=== PATIENT | female | born 1960 | race Caucasian/White ===

== ENCOUNTER 2020-01-25 13:23 | Emergency (ER) | payer MEDICARE, OTHER ==
[2020-01-25 14:04] VITALS: RESP 18
--- NOTE | 2020-01-25 14:42 | ED ---
Female Urogenital HPI - General Chief complaint: Urogenital Stated complaint: Urinating Blood Time Seen by Provider: 01/25/20 14:20 Source: patient Mode of arrival: ambulatory Limitations: no limitations - History of Present Illness Initial comments: Patient is a 60-year-old female presenting to the emergency Department with complaints of hematuria 2 days. Patient states 2 days ago she noticed a small amount of blood in her urine and was also having some mild bilateral lower back pain. Patient states the next day she drank a lot of water and she seemed to feel better, she did not have any more blood in her urine and her back was feeling better. Patient states she woke up this morning and did notice her back pain was back on both sides as well as more blood in her urine. She states she is having urgency and frequency. She denies a history of kidney stones. She takes a full strength aspirin daily, no other blood thinners. She denies fever, chills, nausea, vomiting, abdominal pain. She states she has had UTIs in the past. She has no further complaints at this time. Upon arrival to the ER her vitals are stable. - Related Data Previous Rx's Medication Instructions Recorded Cephalexin [Keflex] 500 mg PO BID 10 Days #20 cap 01/25/20 Fluconazole [Diflucan] 150 mg PO ONCE #1 tab 01/25/20 Allergies Allergy/AdvReac Type Severity Reaction Status Date / Time codeine Allergy Unknown Verified 01/25/20 14:04 Review of Systems ROS Statement: Those systems with pertinent positive or pertinent negative responses have been documented in the HPI. ROS Other: All systems not noted in ROS Statement are negative. Past Medical History Past Medical History: Diabetes Mellitus, Fibromyalgia, Hypertension, Thyroid Disorder Additional Past Medical History / Comment(s): back pain History of Any Multi-Drug Resistant Organisms: None Reported Past Surgical History: Back Surgery, Hysterectomy Additional Past Surgical History / Comment(s): neck surgery Past Psychological History: Anxiety, Depression Smoking Status: Former smoker Past Alcohol Use History: None Reported Past Drug Use History: None Reported General Exam - General Exam Comments Initial Comments: GENERAL: Patient is well-developed and well-nourished. Patient is nontoxic and in no acute distress. HEAD: Atraumatic, normocephalic. EYES: Pupils equal round and reactive to light, extraocular movements intact, sclera anicteric, conjunctiva are normal. Eyelids were unremarkable. ENT: TMs normal, nares patent, oropharynx clear without exudates. Moist mucous membranes. NECK: Normal range of motion, supple without lymphadenopathy or JVD. LUNGS: Unlabored respirations. Breath sounds clear to auscultation bilaterally and equal. No wheezes rales or rhonchi. HEART: Regular rate and rhythm without murmurs, rubs or gallops. ABDOMEN: Soft, nontender, normoactive bowel sounds. No guarding, no rebound. No masses appreciated. : Deferred MUSCULOSKELETAL: Normal extremities with adequate strength and normal range of motion, no pitting or edema. No clubbing or cyanosis. NEUROLOGICAL: Patient is alert and oriented x 3. Motor and sensory are also intact. Cranial nerves II through XII grossly intact. Symmetrical smile. Normal speech, normal gait. PSYCH: Normal mood, normal affect. SKIN: Warm, Dry, normal turgor, no rashes or lesions noted. Limitations: no limitations Course Vital Signs 01/25/20 01/25/20 14:00 15:11 Temperature 98.3 F 97.7 F Pulse Rate 96 88 Respiratory 18 18 Rate Blood Pressure 140/94 128/74 O2 Sat by Pulse 96 96 Oximetry Medical Decision Making - Medical Decision Making Patient is a 60-year-old female here for hematuria, bilateral lower back pain 2 days. Her vitals are stable, no fevers, no vomiting or abdominal pain. Urine shows a moderate amount of blood, high amount of WBCs, bacteria. Urine culture is pending. I discussed with patient that her symptoms are most likely related to a UTI, pyelonephritis is on the differential as well secondary to her back pain. I will start patient on Keflex. She will follow up with her PCP. She is stable for discharge. Return parameters were discussed with the patient she verbalized understanding. Case discussed with Dr. Horton. - Lab Data Lab Results 01/25/20 Range/Units 14:32 Urine Color Light Yellow Urine Appearance Clear (Clear) Urine pH 5.5 (5.0-8.0) Ur Specific [place] 1.009 (1.001-1.035) Urine Protein Negative (Negative) Urine Glucose (UA) Negative (Negative) Urine Ketones Negative (Negative) Urine Blood Moderate H (Negative) Urine Nitrite Negative (Negative) Urine Bilirubin Negative (Negative) Urine Urobilinogen <2.0 (<2.0) mg/dL Ur Leukocyte Esterase Large H (Negative) Urine RBC 60 H (0-5) /hpf Urine WBC 47 H (0-5) /hpf Ur Squamous Epith Cells 4 (0-4) /hpf Urine Bacteria Rare H (None) /hpf Hyaline Casts 12 H (0-2) /lpf Urine Mucus Rare H (None) /hpf Disposition Clinical Impression: Urinary tract infection Disposition: HOME SELF-CARE Condition: Stable Instructions (If sedation given, give patient instructions): Urinary Tract Infection in Women (ED) Additional Instructions: Please return to the Emergency Department if symptoms worsen or any other concerns. Take antibiotics as prescribed. Follow-up with PCP. Continue to increase water intake. Prescriptions: Fluconazole [Diflucan] 150 mg PO ONCE #1 tab Cephalexin [Keflex] 500 mg PO BID 10 Days #20 cap Is patient prescribed a controlled substance at d/c from ED?: No Referrals: Nonstaff,Physician [Primary Care Provider] - 1-2 days
[2020-01-25 14:50] LABS: Appearance,Urine Clear (Clear); Bacteria,Urine Rare /hpf; Bilirubin,Urine Negative (Negative); Blood,Urine Moderate (Negative); Color,Urine Light Yellow; Glucose,Urine (UA) Negative (Negative); Hyaline Casts,Urine 12 /lpf (0-2); Ketones,Urine Negative (Negative); Leukocyte Esterase,Urine Large (Negative); Mucus,Urine Rare /hpf; Nitrite,Urine Negative (Negative); PH, Urine 5.5 (5.0-8.0); Protein,Urine Negative (Negative); RBC,Urine 60 /hpf (0-5); Specific Gravity,Urine 1.009 (1.001-1.035); Squamous Epithelial Cell,Urine 4 /hpf (0-4); Urobilinogen,Urine <2.0 mg/dL (<2.0); WBC,Urine 47 /hpf (0-5)
[2020-01-25 15:11] VITALS: BP 128/74; PULSE 88; TEMP 97.7
== END 2020-01-25 15:34 | disposition home or self-care (01) ==
LOC: EC 13:23
DX: N39.0 Urinary tract infection, site not specified (principal); Z88.5 Allergy status to narcotic agent; Z98.890 Other specified postprocedural states; Z87.891 Personal history of nicotine dependence; Z87.440 Personal history of urinary (tract) infections
CPT/HCPCS: 81001; 87086; 99283

== ENCOUNTER 2020-11-13 19:24 | Emergency (ER) | payer MEDICARE ==
[2020-11-13 19:31] VITALS: TEMP 97.5
[2020-11-13] MEDS ORDERED: HYDROmorphone 1 MG/ML 1 ML SYRINGE IM STA (19:42)
[2020-11-13] MEDS ORDERED: DIPH,PERTUS(ACELL)TETVAC-LF 0.5 ML VIAL IM ONE (19:44)
[2020-11-13] MEDS ORDERED: BACITRACIN OINT 1 EACH PACKET TOPICAL ONE (19:44)
[2020-11-13] MEDS ORDERED: LIDOCAINE/EPINEPHR/TETRACAINE 5 ML BOTTLE TOPICAL ONE (19:44)
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
--- NOTE | 2020-11-13 21:16 | XR ---
EXAMINATION TYPE: XR forearm LT DATE OF EXAM: 11/13/2020 COMPARISON: NONE HISTORY: Pain. Fall. TECHNIQUE: 2 views FINDINGS: Radius and ulna appear intact. I see no fracture nor dislocation. Joint spaces are normal. IMPRESSION: Negative left forearm exam.
[2020-11-13 21:40] VITALS: BP 121/85; PULSE 91; RESP 18
--- NOTE | 2020-11-13 21:44 | XR ---
EXAMINATION TYPE: XR shoulder complete LT DATE OF EXAM: 11/13/2020 COMPARISON: NONE HISTORY: Shoulder pain TECHNIQUE: 3 views FINDINGS: I see no fracture nor dislocation. Joint spaces are normal. There is mild spurring at the A C joint. There are no pathologic calcifications. IMPRESSION: Negative left shoulder exam. No fracture.
--- NOTE | 2020-11-13 21:46 | XR ---
EXAMINATION TYPE: XR lumbosacral spine min 4V DATE OF EXAM: 11/13/2020 COMPARISON: NONE HISTORY: Pain TECHNIQUE: 5 views FINDINGS: Lumbar vertebra have normal alignment. There is rods and screws fusing posteriorly lumbar s pine from L4 to S1. There is vacuum disc at L5-S1. There is mild anterior subluxation of L5 in relati on S1. There is multilevel lumbar disc space narrowing. There is no compression fracture. Abdominal a debbie is atheromatous. Sacroiliac joints are intact. There is laminectomy defect in the lumbar spine a t L4 and L5. IMPRESSION: Previous surgery. No acute bony abnormality. Spondylotic changes.
== END 2020-11-13 22:21 | disposition home or self-care (01) ==
LOC: EC 19:24
DX: S16.1XXA Strain of muscle, fascia and tendon at neck level, initial encounter (principal); S46.912A Strain of unspecified muscle, fascia and tendon at shoulder and upper arm level, left arm, initial encounter; S50.812A Abrasion of left forearm, initial encounter; M54.5 Low back pain; E11.9 Type 2 diabetes mellitus without complications; I10 Essential (primary) hypertension; M79.7 Fibromyalgia; F32.9 Major depressive disorder, single episode, unspecified; F41.9 Anxiety disorder, unspecified; Z23 Encounter for immunization; Z79.1 Long term (current) use of non-steroidal anti-inflammatories (NSAID); Z79.82 Long term (current) use of aspirin; Z79.84 Long term (current) use of oral hypoglycemic drugs; Z79.890 Hormone replacement therapy; Z79.899 Other long term (current) drug therapy; Z87.891 Personal history of nicotine dependence; Z98.1 Arthrodesis status; V28.4XXA Motorcycle driver injured in noncollision transport accident in traffic accident, initial encounter; Y92.410 Unspecified street and highway as the place of occurrence of the external cause; Y93.55 Activity, bike riding
CPT/HCPCS: 72110; 73030; 73090; 72125; 70450; 90715; 96372; 90471; 99284; J1170

== ENCOUNTER → 2020-12-09 | Outpatient (CLI) | payer MEDICARE ==
--- NOTE | 2020-12-09 11:31 | US ---
EXAMINATION TYPE: US carotid duplex BILAT DATE OF EXAM: 12/09/2020 COMPARISON: NONE CLINICAL HISTORY: Z86.73 hx of TIA,I10 PRIMARY HTN. EXAM MEASUREMENTS: RIGHT: Peak Systolic Velocity (PSV) cm/sec ----- Right CCA: 84.9 ----- Right ICA: 120.0 ----- Right ECA: 203.0 ICA/CCA ratio: 1.41 RIGHT: End Diastole cm/sec ----- Right CCA: 21.1 ----- Right ICA: 34.7 ----- Right ECA: 19.1 LEFT: Peak Systolic Velocity (PSV) cm/sec ----- Left CCA: 98.5 ----- Left ICA: 101.0 ----- Left ECA: 130.0 ICA/CCA ratio: 1.03 LEFT: End Diastole cm/sec ----- Left CCA: 31.3 ----- Left ICA: 36.7 ----- Left ECA: 22.4 VERTEBRALS (direction of flow): Right Vertebral: Antegrade Left Vertebral: Antegrade Rhythm: Normal No significant stenosis seen. Elevated right and left ECA velocities. IMPRESSION: No evidence for hemodynamically significant stenosis. NASCET criteria was used in interpretation of this exam? Criteria for Assigning % of Stenosis / Diameter reduction (Estimation based on the indirect measurements of the internal carotid artery velocities (ICA PSV). 1. Normal (no stenosis)=ICA PSV < 125 cm/s: ratio < 2.0: ICA EDV<40 cm/s. 2. Less than 50% stenosis=ICA PSV < 125 cm/s: ratio < 2.0: ICA EDV<40 cm/s. 3. 50 to 69% stenosis=ICA PSV of 125 to 230 cm/s: ration 2.0 ? 4.0: ICA EDV 40-100 cm/s. 4. Greater than 70% stenosis to near occlusion= ICA PSV > 230 cm/s: ratio > 4.0: ICA EDV > 100 cm/s. 5. Near occlusion= ICA PSV velocities may be low or undetectable: variable ratio and ICA EDV. 6. Total occlusion=unable to detect flow.
== END | disposition home or self-care (01) ==
LOC: RADUSWWP 10:56
PROVIDERS: ATTEND Family Medicine
DX: I10 Essential (primary) hypertension (principal); Z86.73 Personal history of transient ischemic attack (TIA), and cerebral infarction without residual deficits
CPT/HCPCS: 93880

== ENCOUNTER → 2021-03-06 | Outpatient (CLI) | payer MEDICARE ==
[2021-03-07 03:37] LABS: Magnesium 2.1 mg/dL (1.5-2.4); Phosphorus 3.8 mg/dL (2.4-5.1)
[2021-03-07 04:58] LABS: ALT 28 U/L (8-44); AST 32 U/L (13-35); African American GFR (CKD) 80.5 (60.0-200.0); Albumin 4.4 g/dL (3.8-4.9); Albumin/Globulin Ratio 1.69 (1.60-3.17); Alkaline Phosphatase 96 U/L (41-126); BUN/Creat Ratio 14.33 Ratio (12.00-20.00); Blood Urea Nitrogen 12.9 mg/dL (9.0-27.0); Calcium 9.7 mg/dL (8.7-10.3); Carbon Dioxide 18.8 mmol/L (21.6-31.8); Chloride 103 mmol/L (96-109); Globulin 2.6 g/dL (1.6-3.3); Glucose 85 mg/dL (70-110); Non-African American GFR(CKD) 69.5 (60.0-200.0); Potassium 4.9 mmol/L (3.5-5.5); Sodium 137 mmol/L (135-145); Total Bilirubin <0.20 mg/dL (0.30-1.20)
== END | disposition home or self-care (01) ==
LOC: LABWHC1 16:21
PROVIDERS: ATTEND Nurse Practitioner Family
DX: E11.9 Type 2 diabetes mellitus without complications (principal); E87.0 Hyperosmolality and hypernatremia
CPT/HCPCS: 36415; 80053; 83735; 84100

== ENCOUNTER 2022-04-24 12:08 | Day surgery (SDC) | payer MEDICARE ==
[~2022-04-24 12:08] MED LIST: LACTATED RINGERS 1,000 ML IV SCH; LIDOCAINE 1% (10MG/ML) FOR IV START INTRADERMA PRN
[2022-04-24 14:24] VITALS: TEMP 96.9
[2022-04-24 14:26] LABS: Glucose,Whole Blood 83 mg/dL (70-110)
[2022-04-24] MEDS ORDERED: ONDANSETRON 4 MG/2 ML VIAL IVP ONE (14:29)
[2022-04-24] MEDS ORDERED: LIDOCAINE 2% INJ 20 MG/ML (2 ML VIAL) ONE (14:46)
[2022-04-24] MEDS ORDERED: PROPOFOL 10 MG/ML 20 ML VIAL IV ONE (14:46)
--- NOTE | 2022-04-24 15:13 | P.PCN ---
Date of Procedure: 04/24/22 Procedure(s) Performed: BRIEF HISTORY: Patient is a 62-year-old pleasant white female scheduled for an elective colonoscopy as a part of evaluation of chronic diarrhea for the last several months duration. PROCEDURE PERFORMED: Colonoscopy with random biopsy. PREOPERATIVE DIAGNOSIS: Chronic Diarrhea. IV sedation per Anesthesia. PROCEDURE: After informed consent was obtained, the patient, was brought into the endoscopy unit. IV sedation was administered by Anesthesia under continuous monitoring. Digital rectal examination was normal. Initially the Olympus CF-160 flexible video colonoscope was then inserted in the rectum, gradually advanced into the cecum without any difficulty. Careful examination was performed as the scope was gradually being withdrawn. Ileocecal valve and the appendiceal orifice were visualized and appeared normal. Prep was excellent. Mucosa of the cecum, ascending colon, transverse colon, descending colon, sigmoid colon, and rectum appeared normal. Biopsies were done from ascending and descending colon to rule out microscopic/collagenous Retroflexion was performed in the rectum and no lesions were seen. The patient tolerated the procedure well. IMPRESSION: Normal-appearing colon from rectum to cecum with no evidence of colitis or colorectal neoplasia . RECOMMENDATIONS: Findings of this examination were discussed with the patient as well as a family. She was advised to follow with the biopsy results. Continue with Bentyl 10 mg 3 times daily and she will be seen in office in 3-4 weeks..
[2022-04-24 15:25] VITALS: BP 138/83; PULSE 78; RESP 14
== END 2022-04-24 15:52 | disposition home or self-care (01) ==
LOC: ORWHC2ENDO 12:08
PROVIDERS: ATTEND Internal Medicine Gastroenterology
DX: K52.9 Noninfective gastroenteritis and colitis, unspecified (principal); I10 Essential (primary) hypertension; E78.5 Hyperlipidemia, unspecified; E11.9 Type 2 diabetes mellitus without complications; E07.9 Disorder of thyroid, unspecified; K91.0 Vomiting following gastrointestinal surgery; M79.7 Fibromyalgia; Z79.890 Hormone replacement therapy; Z79.899 Other long term (current) drug therapy; Z79.84 Long term (current) use of oral hypoglycemic drugs
CPT/HCPCS: 88305; 45380; J2405; J2704; J2001

== ENCOUNTER 2023-01-29 13:41 | Emergency (ER) | payer MEDICARE ==
[2023-01-29 14:01] VITALS: RESP 16; TEMP 98.9
--- NOTE | 2023-01-29 14:24 | ED ---
Chest Pain HPI - General Chief Complaint: Chest Pain Stated Complaint: 3 bad ekg's Time Seen by Provider: 01/29/23 13:57 Source: patient, RN notes reviewed, old records reviewed Mode of arrival: ambulatory Limitations: no limitations - History of Present Illness Initial Comments: This is a 63-year-old female to the emergency department today. Patient p resents today for evaluation of abnormal outpatient EKGs, 3 abnormal EKGs per the patient. Patient presents with chest pain today. She has had chest pain for the last 6 months. Patient presents today for current chest pain shortness of breath especially with exertion with no prior evaluations. MD Complaint: chest pain -: month(s) Pain Location: substernal, left chest Pain Radiation: none Severity: moderate Severity scale (1-10): 4 Quality: tightness, aching, heaviness Consistency: constant Improves With: nothing Worsens With: exertion Anginal Symptoms: nausea, sense of impending doom Other Symptoms: palpitations Treatments Prior to Arrival: none - Related Data Home Medications Medication Instructions Recorded Confirmed ALPRAZolam [Xanax] 1 mg PO DAILY PRN 11/13/20 02/02/23 Ezetimibe [Zetia] 10 mg PO HS 11/13/20 02/02/23 Fetzima Er 120 mg PO DAILY 11/13/20 02/02/23 Levothyroxine Sodium [Synthroid] 75 mcg PO HS 11/13/20 02/02/23 Metoprolol Succinate (ER) [Toprol 100 mg PO DAILY 11/13/20 02/02/23 XL] Dicyclomine [Bentyl] 10 mg PO QID PRN 04/24/22 02/02/23 Cholestyramine (with Sugar) 4 gm PO DAILY PRN 01/29/23 02/02/23 [Questran Powder] Ibuprofen [Motrin] 800 mg PO Q8H 01/29/23 02/02/23 Spironolactone 25 mg PO DAILY 01/29/23 02/02/23 ALPRAZolam [Xanax] 2 mg PO HS 02/02/23 02/02/23 Acetaminophen [Acetaminophen 8 hr] 650 mg PO Q6HR PRN 02/02/23 02/02/23 Miconazole Nitrate [Miconazole 1 applic TOPICAL BID PRN 02/02/23 02/02/23 Nitrate 2%] Pantoprazole [Protonix] 40 mg PO DAILY 02/02/23 02/02/23 Pregabalin [Lyrica] 150 mg PO HS 02/02/23 02/02/23 Pregabalin [Lyrica] 300 mg PO DAILY 02/02/23 02/02/23 Previous Rx's Medication Instructions Recorded Aspirin 81 mg PO DAILY #30 tab 02/03/23 Losartan [Cozaar] 50 mg PO DAILY #30 tab 02/03/23 Nitroglycerin Sl Tabs [Nitrostat] 0.4 mg SUBLINGUAL Q5M PRN #30 tab 02/03/23 Ticagrelor [Brilinta] 90 mg PO BID #30 tab 02/03/23 Venlafaxine HCl [Effexor] 50 mg PO BID #30 tab 02/03/23 Allergies Allergy/AdvReac Type Severity Reaction Status Date / Time codeine Allergy Anaphylaxis Verified 02/02/23 19:04 /RASH/HIVES /Vomiting morphine Allergy Rash/Hives/ Verified 02/02/23 19:04 Vomiting [id number] Reductase AdvReac Swelling Verified 02/02/23 19:04 Inhibitor Review of Systems ROS Statement: Those systems with pertinent positive or pertinent negative responses have been documented in the HPI. ROS Other: All systems not noted in ROS Statement are negative. 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, broken jaw limited ability to open mouth, History of Any Multi-Drug Resistant Organisms: None Reported Past Surgical History: Back Surgery, Hysterectomy Additional Past Surgical History / Comment(s): neck surgery, cataracts 3 level fusion to lower back,cataracts removed, Past Anesthesia/Blood Transfusion Reactions: Postoperative Nausea & Vomiting (PONV) Past Psychological History: Anxiety, Depression Smoking Status: Former smoker General Exam Limitations: no limitations General appearance: alert, in no apparent distress, anxious Head exam: Present: atraumatic, normocephalic, normal inspection Eye exam: Present: normal appearance, PERRL, EOMI. Absent: scleral icterus, conjunctival injection, periorbital swelling ENT exam: Present: normal exam, mucous membranes moist Neck exam: Present: normal inspection. Absent: tenderness, meningismus, lymphadenopathy Respiratory exam: Present: normal lung sounds bilaterally. Absent: respiratory distress, wheezes, rales, rhonchi, stridor Cardiovascular Exam: Present: regular rate, normal rhythm, normal heart sounds. Absent: systolic murmur, diastolic murmur, rubs, gallop, clicks GI/Abdominal exam: Present: soft, normal bowel sounds. Absent: distended, tenderness, guarding, rebound, rigid Extremities exam: Present: normal inspection, full ROM, normal capillary refill. Absent: tenderness, pedal edema, joint swelling, calf tenderness Back exam: Present: normal inspection Neurological exam: Present: alert, oriented X3, CN II-XII intact Psychiatric exam: Present: normal affect, normal mood Skin exam: Present: warm, dry, intact, normal color. Absent: rash Course Vital Signs 01/29/23 01/29/23 13:51 17:39 Temperature 98.9 F Pulse Rate 88 80 Respiratory 16 16 Rate Blood Pressure 155/84 153/90 O2 Sat by Pulse 97 95 Oximetry - Reevaluation(s) Reevaluation #1: 02/04/23 13:53 Medical record is reviewed Reevaluation #2: 02/04/23 13:53 Patient symptoms are unchanged Reevaluation #3: 02/04/23 13:53 Informed results and questions answered Reevaluation #4: 01/29/23 15:31 Was pt. sent in by a medical professional or institution (, PA, MATE CHIEF, urgent care, hospital, or usp...) When possible be specific @ -no Did you speak to anyone other than the patient for history (EMS, parent, family, police, friend...)? What history was obtained from this source @ -no Did you review nursing and triage notes (agree or disagree)? Why? @ -agree Are old charts reviewed (outside hosp., previous admission, EMS record, old EKG, old radiological studies, urgent care reports/EKG's, usp records)? Report findings @ -yes Differential Diagnosis (chest pain, altered mental status, abdominal pain women, abdominal pain men, vaginal bleeding, weakness, fever, dyspnea, syncope, headache, dizziness, GI bleed, back pain, seizure, CVA, palpatations, mental health, musculoskeletal)? @ -prior EKG interpreted by me (3pts min.). @ -yes X-rays interpreted by me (1pt min.). @ -yes CT interpreted by me (1pt min.). @ -no U/S interpreted by me (1pt. min.). @ -no What testing was considered but not performed or refused? (CT, X-rays, U/S, labs)? Why? @ -none What meds were considered but not given or refused? Why? @ -none Did you discuss the management of the patient with other professionals (professionals i.e. , PA, MATE CHIEF, lab, RT, psych nurse, social services analyst, pocketbook maker, teacher, patrol officer, caser in)? Give summary @ -no Was smoking cessation discussed for >3mins.? @ -no Was critical care preformed (if so, how long)? @ -no Were there social determinants of health that impacted care today? How? (Homelessness, low income, unemployed, alcoholism, drug addiction, transportation, low edu. Level, literacy, decrease access to med. care, group home, rehab)? @ -none Was there de-escalation of care discussed even if they declined (Discuss DNR or withdrawal of care, Hospice)? DNR status @ -no What co-morbidities impacted this encounter? (DM, HTN, Smoking, COPD, CAD, Cancer, CVA, ARF, Chemo, Hep., AIDS, mental health diagnosis, sleep apnea, morbid obesity)? @ -none Was patient admitted / discharged? Hospital course, mention meds given and route, prescriptions, significant lab abnormalities, going to OR and other pertinent info. @ - 63 female to the emergency department for abnormal outpatient EKGs, patient is normal troponin here in the ER EKG here in the areas of abnormalities and patient can be discharged home Discharge Undiagnosed new problem with uncertain prognosis? @ -no Drug Therapy requiring intensive monitoring for toxicity (Heparin, Nitro, Insulin, Cardizem)? @ -no Were any procedures done? @ -no Diagnosis/symptom? @ -Chest pain Acute, or Chronic, or Acute on Chronic? @ -Acute Uncomplicated (without systemic symptoms) or Complicated (systemic symptoms)? @ -Complicated Side effects of treatment? @ -no Exacerbation, Progression, or Severe Exacerbation? @ -exacerbation Poses a threat to life or bodily function? How? (Chest pain, USA, MD, pneumonia, PE, COPD, DKA, ARF, appy, cholecystitis, CVA, Diverticulitis, Homicidal, Suicidal, threat to staff... and all critical care pts) @ -yes with chest pain Reevaluation #5: Differential Chest Pain: Stable Angina, Unstable Angina, STEMI, NSTEMI Aortic Dissection, Pneumothorax, Musculoskeletal, Esophageal Spasm GERD, Cholecystitis, Pancreatitis, Zoster, this is not meant to be an all-inclusive list. Chest Pain MDM - MDM 63 female to the emergency department for evaluation of chest pain center for abnormal EKGs. Patient EKG is without significant amount here in the ER lab values are normal patient feeling well and can be discharged home Disposition Clinical Impression: Chest pain, Atypical chest pain Disposition: HOME SELF-CARE Condition: Good Instructions (If sedation given, give patient instructions): Chest Pain (ED) Is patient prescribed a controlled substance at d/c from ED?: No Referrals: Sheila Dao MD [Primary Care Provider] - 1-2 days Doyle Harrington DO [STAFF PHYSICIAN] - 1-2 days Time of Disposition: 17:00
--- NOTE | 2023-01-29 16:00 | XR ---
EXAMINATION TYPE: XR chest 2V DATE OF EXAM: 01/29/2023 COMPARISON: NONE TECHNIQUE: PA and lateral views submitted. HISTORY: None FINDINGS: The lungs are clear and there is no pneumothorax, pleural effusion, or focal pneumonia. Heart size normal and no overt failure. Osseous structures demonstrate hypertrophic and degenerative changes of the spine. Limited inspiration. Postsurgical change overlying the cervical spine. Linear changes left lung base most typical of atelectasis. IMPRESSION: 1. No acute process.
[2023-01-29 16:04] LABS: Basophils % (A) 1 %; Eosinophils # (A) 0.2 k/uL (0-0.7); Eosinophils % (A) 2 %; HCT 45.1 % (34.0-46.0); HGB 14.8 gm/dL (11.4-16.0); Lymphocytes # (A) 2.5 k/uL (1.0-4.8); Lymphocytes % (A) 26 %; MCH 29.6 pg (25.0-35.0); MCHC 32.8 g/dL (31.0-37.0); MCV 90.2 fL (80.0-100.0); Mean Platelet Volume 8.7; Monocytes # (A) 0.4 k/uL (0-1.0); Monocytes % (A) 4 %; Neutrophils # (A) 6.3 k/uL (1.3-7.7); Neutrophils % (A) 66 %; Platelet Count 338 k/uL (150-450); RBC 4.99 m/uL (3.80-5.40); RDW 13.1 % (11.5-15.5); WBC 9.6 k/uL (3.8-10.6)
[2023-01-29 16:14] LABS: ALT 27 U/L (4-34); AST 30 U/L (14-36); African American GFR (CKD) >90 (>60 ml/min/1.73 sqM); Albumin 4.5 g/dL (3.5-5.0); Alkaline Phosphatase 87 U/L (38-126); Anion Gap 11 mmol/L; Blood Urea Nitrogen 14 mg/dL (7-17); Calcium 9.9 mg/dL (8.4-10.2); Carbon Dioxide 28 mmol/L (22-30); Chloride 103 mmol/L (98-107); Glucose 127 mg/dL (74-99); INR 0.9 (<1.2); Lipase 83 U/L (23-300); Magnesium 1.7 mg/dL (1.6-2.3); Non-African American GFR(CKD) 79 (>60 ml/min/1.73 sqM); Potassium 4.3 mmol/L (3.5-5.1); Sodium 142 mmol/L (137-145); Total Bilirubin 0.5 mg/dL (0.2-1.3); Total Protein 7.4 g/dL (6.3-8.2)
[2023-01-29 16:22] LABS: NT-Pro-B-Type Natriuretic Pept 36 pg/mL; Prothrombin Time 10.4 sec (10.0-12.5)
[2023-01-29 17:54] VITALS: BP 153/90; PULSE 80
== END 2023-01-29 17:40 | disposition home or self-care (01) ==
LOC: EC 13:41
DX: R07.89 Other chest pain (principal); E11.9 Type 2 diabetes mellitus without complications; I10 Essential (primary) hypertension; E07.9 Disorder of thyroid, unspecified; F41.9 Anxiety disorder, unspecified; F32.A Depression, unspecified; Z87.891 Personal history of nicotine dependence; Z86.73 Personal history of transient ischemic attack (TIA), and cerebral infarction without residual deficits; Z79.890 Hormone replacement therapy; Z79.899 Other long term (current) drug therapy; Z88.5 Allergy status to narcotic agent; Z88.8 Allergy status to other drugs, medicaments and biological substances
CPT/HCPCS: 36415; 71046; 80053; 83690; 83735; 83880; 84484; 85025; 85610; 85730; 93005; 99285

== ENCOUNTER 2023-02-02 12:31 | Inpatient (IN) | payer MEDICARE ==
[2023-02-02] MEDS ORDERED: ASPIRIN 81 MG ONE (13:16)
[2023-02-02 13:18] LABS: Glucose,Whole Blood 66 mg/dL (70-110)
[2023-02-02] MEDS ORDERED: DEXTROSE 50% SYRINGE 50 ML IVP ONE (13:18)
[2023-02-02] MEDS ORDERED: SODIUM CHLORIDE 0.9% 1,000 ML IV ONE (13:30)
[2023-02-02] MEDS ORDERED: VERAPAMIL 2.5 MG/ML 2 ML AMP ONE (13:31)
[2023-02-02 13:45] LABS: Glucose,Whole Blood 82 mg/dL (70-110)
[2023-02-02] MEDS ORDERED: ACETAMINOPHEN TAB 325 MG TAB ONE (14:04)
[2023-02-02] MEDS ORDERED: HEPARIN SODIUM 1,000 UN/ML (10ML VL) ONE (14:54)
[2023-02-02] MEDS: HEPARIN SODIUM 1,000 UN/ML (10ML VL) IV ONE ×2 (14:54→15:09)
[2023-02-02] MEDS ORDERED: fentaNYL (PF) 50 MCG/ML 2 ML AMP ONE (14:56)
[2023-02-02] MEDS ORDERED: MIDAZOLAM 2 MG/2 ML VIAL IVP ONE (14:57)
[2023-02-02] MEDS ORDERED: fentaNYL (PF) 50 MCG/ML 2 ML AMP IVP ONE (14:57)
[2023-02-02] MEDS: NITROGLYCERIN 1000MCG/10ML SYRINGE INTRACORON ONE ×2 (15:10→15:20)
[2023-02-02] MEDS ORDERED: IOPAMIDOL-370 100ML BTL INJ ONE (15:26)
[2023-02-02] MEDS ORDERED: ATROPINE SULFATE 0.1 MG/ML 10ML SYRINGE IV PRN (15:31)
[2023-02-02] MEDS ORDERED: RX INFO: IV CONTRAST WAS GIVEN 1 EACH MISC MISCELLANE PRN (15:31)
[2023-02-02] MEDS ORDERED: NITROGLYCERIN SL TABS 0.4 MG TAB SUBLINGUAL PRN (15:31)
[2023-02-02] MEDS ORDERED: MAG HYDROX/AL HYDROX/SIMETH 30 ML CUP PO PRN (15:31)
[2023-02-02] MEDS ORDERED: ZOLPIDEM 5 MG TAB PO PRN (15:31)
--- NOTE | 2023-02-02 15:38 | P.PRCINT ---
Percutaneous Coronary Int. - Percutaneous Coronary Intervention Percutaneous Coronary Intervention: PROCEDURES PERFORMED: Left coronary angiography, IVUS LAD, PCI LAD with a 3.5 x 18mm Xience ROBERT, post dilated with a 3.5 NC balloon INDICATION: Unstable angina CONSENT:I have discussed the risks, benefits and alternative therapies for the above-mentioned procedure and for both sedation/analgesia as well as necessary blood product administration, if indicated, as they pertain to this patient. The patient has indicated understanding and acceptance of the risks and procedures discussed. PROCEDURE: After the risks, benefits and alternatives of the above mentioned procedure explained in detail with the patient, informed consent was obtained. Patient was taken to the catheterization lab and prepped and draped in usual fashion. A 6-Swazi sheath had previously been placed in the right radial artery. Patient had diagnostic procedure performed at [facility] which showed significant 90% mid LAD lesion and therefore I was asked to perform PCI. The decision was made to perform PCI of LAD. A 6-Swazi CLS 3.0 guide was using gauge left main. Heparin was given for ACT greater than 250. A 0.014 BMW wire was advanced in the distal LAD. Predilation was performed with a 3.0 balloon. Intravascular ultrasound showed reference vessel 3.5 mm and a somewhat calcified mid LAD plaque. A 3.5 x 18 mm Xience ROBERT was placed in the mid LAD. There was a small diagonal branch which was jailed however still with MARISA 3 flow. The stent was postdilated with a 3.5 noncompliant balloon. Post intravascular ultrasound showed well-expanded stent with no dissection. She did have small amount of chest discomfort during ballooning. The wire was pulled and final angiograms were performed. Preintervention there is 90% stenosis and MARISA-3 flow and postintervention there was less than 10% stenosis with MARISA 3 flow. The right radial sheath was removed and a TR band was placed with hemostasis achieved. The patient tolerated the procedure well. Patient was transported back to the post catheterization holding area in stable condition. Conscious Sedation: Patient was monitored under the direct supervision of myself for conscious sedation using Versed and fentanyl for a total duration of 29 minutes HEMODYNAMICS: Aorta: 148/82 SELECTIVE CORONARY ARTERIOGRAPHY: LEFT MAIN: The left main is a large caliber vessel which bifurcates into the LAD and circumflex. There is no significant stenosis. LEFT ANTERIOR DESCENDING CORONARY ARTERY: LAD is a large caliber vessel which wraps around to the apex. There is mild diffuse disease including a longer 30- 50% mid LAD stenosis with a more focal 90% stenosis at the level of a small caliber diagonal 2 branch. Otherwise there are mild luminal irregularities. LEFT CIRCUMFLEX CORONARY ARTERY: Left circumflex is a moderate caliber vessel. There are diffuse mild 30% mid circumflex and OM1 stenoses. RIGHT CORONARY ARTERY: The right coronary artery was not imaged, see separate report. FINAL IMPRESSION: 1. CAD as described above including 90% mid LAD stenosis. 2. S/p PCI LAD with a 3.5 x 18mm Xience ROBERT, post dilated with a 3.5 NC balloon PLAN: 1. Aggressive risk factor modification per most recent ACC/AHA guidelines. 2. Continue dual antiplatelets with aspirin and Brillinta for 12 months.
[2023-02-02 15:54] LABS: Glucose,Whole Blood 101 mg/dL (70-110)
[2023-02-02] MEDS: SODIUM CHLORIDE 0.9% 1,000 ML in EMPTY BAG 1 BAG IV SCH (16:54)
[2023-02-02] MEDS ORDERED: CHOLESTYRAMINE (WITH SUGAR) 4 GM PACKET PO PRN (17:20)
[2023-02-02] MEDS ORDERED: IBUPROFEN 800 MG TAB PO PRN (17:20)
[2023-02-02] MEDS ORDERED: ACETAMINOPHEN TAB 325 MG TAB PO PRN (17:20)
[2023-02-02] MEDS ORDERED: ALPRAZolam 1 MG TAB PO PRN (17:20)
[2023-02-02 20:10] LABS: Glucose,Whole Blood 130 mg/dL (70-110)
[2023-02-02] MEDS: TICAGRELOR 90 MG TAB PO SCH (20:34)
[2023-02-02] MEDS: VENLAFAXINE HCL 50 MG TAB PO SCH (20:35)
[2023-02-02] MEDS: DICYCLOMINE 10 MG CAP PO PRN (20:38)
[2023-02-02] MEDS ORDERED: PREGABALIN 75 MG CAP PO SCH (21:00)
[2023-02-02] MEDS ORDERED: EZETIMIBE 10 MG TAB PO SCH (21:00)
[2023-02-02] MEDS ORDERED: LEVOTHYROXINE 75 MCG TAB PO SCH (21:00)
[2023-02-03] MEDS: SODIUM CHLORIDE 0.9% 1,000 ML in EMPTY BAG 1 BAG IV SCH (04:29)
[2023-02-03 06:11] LABS: Glucose,Whole Blood 108 mg/dL (70-110)
[2023-02-03] MEDS ORDERED: ASPIRIN 81 MG PO SCH (09:00)
[2023-02-03] MEDS ORDERED: PANTOPRAZOLE 40 MG TABLET PO SCH (09:00)
[2023-02-03] MEDS ORDERED: FETZIMA 120 MG PO SCH (09:00)
[2023-02-03] MEDS ORDERED: PREGABALIN 100 MG CAP PO SCH (09:00)
[2023-02-03] MEDS ORDERED: SPIRONOLACTONE 25 MG TAB PO SCH (09:00)
[2023-02-03] MEDS ORDERED: amLODIPine 5 MG TAB PO SCH (09:00)
[2023-02-03] MEDS ORDERED: METOPROLOL SUCCINATE (ER) 100 MG TAB.ER.24H PO SCH (09:00)
[2023-02-03] MEDS: VENLAFAXINE HCL 50 MG TAB PO SCH (09:07)
[2023-02-03] MEDS: TICAGRELOR 90 MG TAB PO SCH (09:08)
[2023-02-03] MEDS: DICYCLOMINE 10 MG CAP PO PRN (09:39)
[2023-02-03 09:50] VITALS: RESP 20
[2023-02-03] MEDS ORDERED: LOSARTAN 50 MG TAB PO SCH (10:45)
[2023-02-03 10:46] LABS: African American GFR (CKD) >90 (>60 ml/min/1.73 sqM); Non-African American GFR(CKD) >90 (>60 ml/min/1.73 sqM)
[2023-02-03 11:42] LABS: Glucose,Whole Blood 89 mg/dL (70-110)
--- NOTE | 2023-02-03 12:10 | P.HPIM ---
History of Present Illness Patient is a pleasant 62-year-old female with known of family history of coronary artery disease. Was admitted directly Hospital for Non-ST Elevation Microinfarction Found to Have 90% Stenosis of LAD. Patient Had Cardiac Catheterization and Stenting of LAD. Patient Had Normal Ejection Fraction Patient Was Also Comparing of Left Leg pain for which patient had Doppler at [facility] which was negative for any DVT. Patient is feeling well at this time patient will be discharged today patient does have history of hyperten ismael patient has history of colitis. REVIEW OF SYSTEMS: CONSTITUTIONAL: No fever, no malaise, no fatigue. HEENT: No recent visual problems or hearing problems. Denied any sore throat. CARDIOVASCULAR: No chest pain, orthopnea, PND, no palpitations, no syncope. PULMONARY: No shortness of breath, no cough, no hemoptysis. GASTROINTESTINAL: No diarrhea, no nausea, no vomiting, no abdominal pain. NEUROLOGICAL: No headaches, no weakness, no numbness. HEMATOLOGICAL: Denies any bleeding or petechiae. GENITOURINARY: Denies any burning micturition, frequency, or urgency. MUSCULOSKELETAL/RHEUMATOLOGICAL: Denies any joint pain, swelling, or any muscle pain. ENDOCRINE: Denies any polyuria or polydipsia. The rest of the 14-point review of systems is negative. PHYSICAL EXAMINATION: GENERAL: The patient is alert and oriented x3, not in any acute distress. Well developed, well nourished. HEENT: Pupils are round and equally reacting to light. EOMI. No scleral icterus. No conjunctival pallor. Normocephalic, atraumatic. No pharyngeal erythema. No thyromegaly. CARDIOVASCULAR: S1 and S2 present. No murmurs, rubs, or gallops. PULMONARY: Chest is clear to auscultation, no wheezing or crackles. ABDOMEN: Soft, nontender, nondistended, normoactive bowel sounds. No palpable organomegaly. MUSCULOSKELETAL: No joint swelling or deformity. EXTREMITIES: No cyanosis, clubbing, or pedal edema. NEUROLOGICAL: Gross neurological examination did not reveal any focal deficits. SKIN: No rashes. Assessment and plan -Acute non-ST elevation microinfarction: Status post a cardiac catheterization and stenting to LAD. Patient will be discharged and he'll antiplatelet therapy patient cannot tolerate statins because of which are patient is not being discharged on statin patient was also started on losartan and patient does take amlodipine and was instructed to discontinue if she is lightheaded or blood pressure goes down because of this medication -Hypertension management as mentioned above -Polymyalgia next and-hypothyroidism -History of for colitis -CVA TIA in the past -Type 2 diabetes mellitus For above-mentioned chronic medical problems patient will resume her home medications and follow up with primary care physician Patient will be discharged today Past Medical History Past Medical History: CVA/TIA, Diabetes Mellitus, Fibromyalgia, Hypertension, Thyroid Disorder Additional Past Medical History / Comment(s): back pain 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, broken jaw limited ability to open mouth, History of Any Multi-Drug Resistant Organisms: None Reported Past Surgical History: Back Surgery, Hysterectomy Additional Past Surgical History / Comment(s): neck surgery, cataracts 3 level fusion to lower back,cataracts removed, Past Anesthesia/Blood Transfusion Reactions: Postoperative Nausea & Vomiting (PONV) Past Psychological History: Anxiety, Depression Smoking Status: Former smoker Past Alcohol Use History: Rare Additional Past Alcohol Use History / Comment(s): quit 2000 Past Drug Use History: None Reported - Past Family History Mother Family Medical History: Diabetes Mellitus Additional Family Medical History / Comment(s): CABG Sister(s) Family Medical History: Diabetes Mellitus Medications and Allergies Home Medications Medication Instructions Recorded Confirmed Type ALPRAZolam [Xanax] 1 mg PO DAILY PRN 11/13/20 02/02/23 History Ezetimibe [Zetia] 10 mg PO HS 11/13/20 02/02/23 History Fetzima Er 120 mg PO DAILY 11/13/20 02/02/23 History Levothyroxine Sodium [Synthroid] 75 mcg PO HS 11/13/20 02/02/23 History Metoprolol Succinate (ER) [Toprol 100 mg PO DAILY 11/13/20 02/02/23 History XL] Dicyclomine [Bentyl] 10 mg PO QID PRN 04/24/22 02/02/23 History Cholestyramine (with Sugar) 4 gm PO DAILY PRN 01/29/23 02/02/23 History [Questran Powder] Ibuprofen [Motrin] 800 mg PO Q8H 01/29/23 02/02/23 History Spironolactone 25 mg PO DAILY 01/29/23 02/02/23 History ALPRAZolam [Xanax] 2 mg PO HS 02/02/23 02/02/23 History Acetaminophen [Acetaminophen 8 hr] 650 mg PO Q6HR PRN 02/02/23 02/02/23 History Miconazole Nitrate [Miconazole 1 applic TOPICAL BID PRN 02/02/23 02/02/23 History Nitrate 2%] Pantoprazole [Protonix] 40 mg PO DAILY 02/02/23 02/02/23 History Pregabalin [Lyrica] 150 mg PO HS 02/02/23 02/02/23 History Pregabalin [Lyrica] 300 mg PO DAILY 02/02/23 02/02/23 History Aspirin 81 mg PO DAILY #30 tab 02/03/23 Rx Losartan [Cozaar] 50 mg PO DAILY #30 tab 02/03/23 Rx Nitroglycerin Sl Tabs [Nitrostat] 0.4 mg SUBLINGUAL Q5M PRN #30 tab 02/03/23 Rx Ticagrelor [Brilinta] 90 mg PO BID #30 tab 02/03/23 Rx Venlafaxine HCl [Effexor] 50 mg PO BID #30 tab 02/03/23 Rx Allergies Allergy/AdvReac Type Severity Reaction Status Date / Time codeine Allergy Anaphylaxis Verified 02/02/23 19:04 /RASH/HIVES /Vomiting morphine Allergy Rash/Hives/ Verified 02/02/23 19:04 Vomiting Blixwby-[id number]-[id number] Reductase AdvReac Swelling Verified 02/02/23 19:04 Inhibitor Physical Exam Vitals: Vital Signs Temp Pulse Pulse Resp BP Pulse Ox 02/03/23 09:05 64 20 149/87 100 02/03/23 04:00 67 18 143/79 98 02/03/23 02:00 65 20 02/03/23 00:00 65 20 132/60 95 02/02/23 20:00 67 18 151/80 98 02/02/23 18:28 98 16 165/97 98 02/02/23 17:11 72 16 147/100 96 02/02/23 16:41 58 L 16 163/85 97 02/02/23 16:26 58 L 16 117/81 98 02/02/23 16:11 53 L 16 159/93 96 02/02/23 15:56 55 L 16 134/81 95 02/02/23 13:35 97.7 F 60 16 163/84 97 Intake and Output 02/02/23 02/03/23 02/03/23 22:59 06:59 14:59 Intake Total 180 180 Balance 180 180 Intake: Oral 180 180 Other: Voiding Method Toilet Toilet Toilet # Voids 1 2 1 Weight 87 kg Results CBC & Chem 7: 02/03/23 10:20 Labs: Abnormal Lab Results - Last 24 Hours (Table) 02/02/23 02/02/23 Range/Units 13:17 20:09 POC Glucose (mg/dL) 66 L 130 H (70-110) mg/dL Thrombosis Risk Factor Assmnt - Choose All That Apply Each Factor Represents 1 point: Obesity (BMI >25) Each Risk Factor Represents 2 Points: Age 61-74 years Thrombosis Risk Factor Assessment Total Risk Factor Score: 3 Thrombosis Risk Factor Assessment Level: Moderate Risk
--- NOTE | 2023-02-03 12:11 | P.DS ---
Providers Date of admission: 02/02/23 13:08 Attending physician: Sathya Vanec Consults: 02/02/23 15:31 Consult Physician Routine Consulting Provider: [facility] Consult Reason/Comments: Post Interventional Patient Do you want consulting provider notified?: Already Contacted Primary care physician: Stated None Hospital Course: Patient is a pleasant 62-year-old female with known of family history of coronary artery disease. Was admitted directly Hospital for Non-ST Elevation Microinfarction Found to Have 90% Stenosis of LAD. Patient Had Cardiac Catheterization and Stenting of LAD. Patient Had Normal Ejection Fraction Patient Was Also Comparing of Left Leg pain for which patient had Doppler at [facility] which was negative for any DVT. Patient is feeling well at this time patient will be discharged today patient does have history of hypertension patient has history of colitis. REVIEW OF SYSTEMS: CONSTITUTIONAL: No fever, no malaise, no fatigue. HEENT: No recent visual problems or hearing problems. Denied any sore throat. CARDIOVASCULAR: No chest pain, orthopnea, PND, no palpitations, no syncope. PULMONARY: No shortness of breath, no cough, no hemoptysis. GASTROINTESTINAL: No diarrhea, no nausea, no vomiting, no abdominal pain. NEUROLOGICAL: No headaches, no weakness, no numbness. HEMATOLOGICAL: Denies any bleeding or petechiae. GENITOURINARY: Denies any burning micturition, frequency, or urgency. MUSCULOSKELETAL/RHEUMATOLOGICAL: Denies any joint pain, swelling, or any muscle pain. ENDOCRINE: Denies any polyuria or polydipsia. The rest of the 14-point review of systems is negative. PHYSICAL EXAMINATION: GENERAL: The patient is alert and oriented x3, not in any acute distress. Well developed, well nourished. HEENT: Pupils are round and equally reacting to light. EOMI. No scleral icterus. No conjunctival pallor. Normocephalic, atraumatic. No pharyngeal erythema. No thyromegaly. CARDIOVASCULAR: S1 and S2 present. No murmurs, rubs, or gallops. PULMONARY: Chest is clear to auscultation, no wheezing or crackles. ABDOMEN: Soft, nontender, nondistended, normoactive bowel sounds. No palpable organomegaly. MUSCULOSKELETAL: No joint swelling or deformity. EXTREMITIES: No cyanosis, clubbing, or pedal edema. NEUROLOGICAL: Gross neurological examination did not reveal any focal deficits. SKIN: No rashes. Assessment and plan -Acute non-ST elevation microinfarction: Status post a cardiac catheterization and stenting to LAD. Patient will be discharged and he'll antiplatelet therapy patient cannot tolerate statins because of which are patient is not being discharged on statin patient was also started on losartan and patient does take amlodipine and was instructed to discontinue if she is lightheaded or blood pressure goes down because of this medication -Hypertension management as mentioned above -Polymyalgia next and-hypothyroidism -History of for colitis -CVA TIA in the past -Type 2 diabetes mellitus For above-mentioned chronic medical problems patient will resume her home medications and follow up with primary care physician Patient will be discharged today Plan - Discharge Summary New Discharge Prescriptions: New Ticagrelor [Brilinta] 90 mg PO BID #30 tab Losartan [Cozaar] 50 mg PO DAILY #30 tab Venlafaxine HCl [Effexor] 50 mg PO BID #30 tab Aspirin 81 mg PO DAILY #30 tab Nitroglycerin Sl Tabs [Nitrostat] 0.4 mg SUBLINGUAL Q5M PRN #30 tab PRN Reason: Chest Pain Continue Fetzima Er 120 mg PO DAILY ALPRAZolam [Xanax] 1 mg PO DAILY PRN PRN Reason: Anxiety Levothyroxine Sodium [Synthroid] 75 mcg PO HS Dicyclomine [Bentyl] 10 mg PO QID PRN PRN Reason: IBS Cholestyramine (with Sugar) [Questran Powder] 4 gm PO DAILY PRN PRN Reason: Diarrhea Pantoprazole [Protonix] 40 mg PO DAILY Miconazole Nitrate [Miconazole Nitrate 2%] 1 applic TOPICAL BID PRN PRN Reason: Rash Pregabalin [Lyrica] 300 mg PO DAILY Metoprolol Succinate (ER) [Toprol XL] 100 mg PO DAILY Ezetimibe [Zetia] 10 mg PO HS Spironolactone 25 mg PO DAILY Ibuprofen [Motrin] 800 mg PO Q8H Pregabalin [Lyrica] 150 mg PO HS Acetaminophen [Acetaminophen 8 hr] 650 mg PO Q6HR PRN PRN Reason: Headache ALPRAZolam [Xanax] 2 mg PO HS Discontinued Aspirin EC [Ecotrin] 325 mg PO DAILY Discharge Medication List ALPRAZolam [Xanax] 1 mg PO DAILY PRN 11/13/20 [History] Ezetimibe [Zetia] 10 mg PO HS 11/13/20 [History] Fetzima Er 120 mg PO DAILY 11/13/20 [History] Levothyroxine Sodium [Synthroid] 75 mcg PO HS 11/13/20 [History] Metoprolol Succinate (ER) [Toprol XL] 100 mg PO DAILY 11/13/20 [History] Dicyclomine [Bentyl] 10 mg PO QID PRN 04/24/22 [History] Cholestyramine (with Sugar) [Questran Powder] 4 gm PO DAILY PRN 01/29/23 [History] Ibuprofen [Motrin] 800 mg PO Q8H 01/29/23 [History] Spironolactone 25 mg PO DAILY 01/29/23 [History] ALPRAZolam [Xanax] 2 mg PO HS 02/02/23 [History] Acetaminophen [Acetaminophen 8 hr] 650 mg PO Q6HR PRN 02/02/23 [History] Miconazole Nitrate [Miconazole Nitrate 2%] 1 applic TOPICAL BID PRN 02/02/23 [History] Pantoprazole [Protonix] 40 mg PO DAILY 02/02/23 [History] Pregabalin [Lyrica] 150 mg PO HS 02/02/23 [History] Pregabalin [Lyrica] 300 mg PO DAILY 02/02/23 [History] Aspirin 81 mg PO DAILY #30 tab 02/03/23 [Rx] Losartan [Cozaar] 50 mg PO DAILY #30 tab 02/03/23 [Rx] Nitroglycerin Sl Tabs [Nitrostat] 0.4 mg SUBLINGUAL Q5M PRN #30 tab 02/03/23 [Rx] Ticagrelor [Brilinta] 90 mg PO BID #30 tab 02/03/23 [Rx] Venlafaxine HCl [Effexor] 50 mg PO BID #30 tab 02/03/23 [Rx] Follow up Appointment(s)/Referral(s): Alexis Lopez MD [Medical Doctor] - 1 Week Patient Instructions/Handouts: *Surgery [facility] - After Heart Catheterization - [employer] Driver Instructions Discharge Disposition: HOME SELF-CARE
[2023-02-03 12:24] VITALS: BP 146/81; PULSE 63; TEMP 97.6
--- NOTE | 2023-02-03 13:59 | P.PN ---
Subjective HISTORY OF PRESENT ILLNESS: This is a 63-year-old female who presented to [facility] with a chief complaint of chest pain. She underwent Niki scan which came out to be abnormal. She underwent diagnostic cardiac catheterization revealing 90% mid LAD lesion. She was transferred to [facility]. She underwent PCI of the LAD yesterday with Dr. Harrington. Patient examined this morning at the bedside. Patient denies chest pain or pressure. She denies shortness of breath. Patient's blood pressures are on the higher side with a systolic in the 140s PHYSICAL EXAM: VITAL SIGNS: Reviewed. GENERAL: Well-developed in no acute distress. NECK: Supple. No JVD or thyromegaly LUNGS: Respirations even and unlabored. Lungs essentially clear to auscultation bilaterally. HEART: Regular rate and rhythm. S1 and S2 heard. EXTREMITIES: Normal range of motion. No clubbing or cyanosis. Peripheral pulses intact. No lower extremity edema ASSESSMENT: Chest pain, status post abnormal Lexiscan stress test, status post cardiac catheterization with stenting to the LAD Coronary artery disease, status post PCI to LAD Hypertension Hyperlipidemia with statin intolerance PLAN: Continue dual antiplatelet therapy with aspirin and Brilinta Patient with a history of statin intolerance. She may continue with Zetia. Continue additional cardiac medications Patient is stable for discharge home today from a cardiac standpoint She is to follow-up post discharge with Dr. Lopez Nurse practitioner note has been reviewed by physician. Signing provider agrees with the documented findings, assessment, and plan of care. Objective - Vital Signs Vital signs: Vital Signs Temp 97.6 F 02/03/23 09:05 Pulse 63 02/03/23 12:00 Resp 20 02/03/23 09:05 BP 146/81 02/03/23 12:00 Pulse Ox 100 02/03/23 09:05 FiO2 Intake & Output 02/02/23 02/03/23 02/03/23 18:59 06:59 18:59 Intake Total 380 360 Balance 380 360 Weight 87 kg Intake: IV 200 Oral 180 360 Other: Voiding Method Toilet Toilet # Voids 1 2 1 - Labs CBC & Chem 7: 02/03/23 10:20 Labs: Abnormal Lab Results - Last 24 Hours (Table) 02/02/23 Range/Units 20:09 POC Glucose (mg/dL) 130 H (70-110) mg/dL
[2023-02-03 14:25] VITALS: BMI 34.0
== END 2023-02-03 14:56 | disposition home or self-care (01) | DRG 322 ==
LOC: 3SCARD 13:08
PROVIDERS: ADMIT Internal Medicine; ATTEND Internal Medicine
PROC: B2111ZZ Fluoroscopy of Multiple Coronary Arteries using Low Osmolar Contrast (ICD-10-PCS; 2023-02-02)
PROC: 027034Z Dilation of Coronary Artery, One Artery with Drug-eluting Intraluminal Device, Percutaneous Approach (ICD-10-PCS; principal; 2023-02-02 15:20)
PROC: B240ZZ3 Ultrasonography of Single Coronary Artery, Intravascular (ICD-10-PCS; 2023-02-02 15:20)
DX: I25.119 Atherosclerotic heart disease of native coronary artery with unspecified angina pectoris (principal); E03.9 Hypothyroidism, unspecified; E11.9 Type 2 diabetes mellitus without complications; E78.5 Hyperlipidemia, unspecified; F32.A Depression, unspecified; F41.9 Anxiety disorder, unspecified; I10 Essential (primary) hypertension; M35.3 Polymyalgia rheumatica; M79.7 Fibromyalgia; Z79.02 Long term (current) use of antithrombotics/antiplatelets; Z79.82 Long term (current) use of aspirin; G89.29 Other chronic pain; M54.9 Dorsalgia, unspecified; Z79.890 Hormone replacement therapy; Z79.899 Other long term (current) drug therapy; Z82.49 Family history of ischemic heart disease and other diseases of the circulatory system; Z87.891 Personal history of nicotine dependence; Z86.73 Personal history of transient ischemic attack (TIA), and cerebral infarction without residual deficits; Z90.710 Acquired absence of both cervix and uterus; Z98.61 Coronary angioplasty status; Z88.5 Allergy status to narcotic agent; Z88.8 Allergy status to other drugs, medicaments and biological substances; Z98.42 Cataract extraction status, left eye; Z98.41 Cataract extraction status, right eye; Z98.1 Arthrodesis status
CPT/HCPCS: 82565; 92978

== ENCOUNTER → 2023-03-01 | Outpatient (CLI) | payer MEDICARE ==
[2023-03-01 16:52] LABS: HCT 40.6 % (37.2-46.3); MCH 28.7 pg (27.0-32.0); MCV 89.6 FL (80.0-97.0); Mean Platelet Volume 10.6 FL (9.5-12.2); NRBC Per 100 WBC 0 X 10*3/uL (0.00-0.01); Platelet Count 320 X 10*3/uL (140-440); RBC 4.53 X 10*6/uL (4.10-5.20); RDW 13.5 % (11.5-14.5); WBC 7.93 X 10*3/uL (4.50-10.00)
[2023-03-01 18:48] LABS: ALT 17 U/L (8-44); AST 19 U/L (13-35); Albumin 4.3 g/dL (3.8-4.9); Albumin/Globulin Ratio 1.72 Ratio (1.60-3.17); Alkaline Phosphatase 105 U/L (41-126); BUN/Creat Ratio 13.14 Ratio (12.00-20.00); Blood Urea Nitrogen 9.2 mg/dL (9.0-27.0); Carbon Dioxide 28.8 mmol/L (21.6-31.8); Chloride 102 mmol/L (96-109); Chol/HDL Ratio 2.25 Ratio; Globulin 2.5 g/dL (1.6-3.3); Glucose 91 mg/dL (70-110); Potassium 4.3 mmol/L (3.5-5.5); Sodium 143 mmol/L (135-145); Total Bilirubin 0.6 mg/dL (0.3-1.2); Total Protein 6.8 g/dL (6.2-8.2)
== END | disposition home or self-care (01) ==
LOC: LABWHC1 09:28
PROVIDERS: ATTEND Student in an Organized Health Care Education/Training Program
DX: I10 Essential (primary) hypertension (principal); I25.10 Atherosclerotic heart disease of native coronary artery without angina pectoris; E78.5 Hyperlipidemia, unspecified
CPT/HCPCS: 36415; 80053; 80061; 83036; 85027

== ENCOUNTER → 2023-07-08 | Outpatient (CLI) | payer MEDICARE, OTHER ==
[2023-07-08 16:11] LABS: ALT 26 U/L (8-44); AST 23 U/L (13-35); Albumin 4.7 g/dL (3.8-4.9); Albumin/Globulin Ratio 1.68 Ratio (1.60-3.17); Alkaline Phosphatase 95 U/L (41-126); BUN/Creat Ratio 16.88 Ratio (12.00-20.00); Blood Urea Nitrogen 13.5 mg/dL (9.0-27.0); Calcium 10.3 mg/dL (8.7-10.3); Carbon Dioxide 24.6 mmol/L (21.6-31.8); Chloride 102 mmol/L (96-109); Chol/HDL Ratio 2.25 Ratio; Globulin 2.8 g/dL (1.6-3.3); Glucose 97 mg/dL (70-110); LDL Cholesterol,Calculated 34.1 mg/dL (0.0-131.0); Potassium 4.4 mmol/L (3.5-5.5); Sodium 140 mmol/L (135-145); Total Bilirubin 0.6 mg/dL (0.3-1.2); Total Protein 7.5 g/dL (6.2-8.2)
[2023-07-08 16:35] LABS: HGB 15.5 g/dL (12.0-15.0); MCH 29.9 pg (27.0-32.0); MCHC 32.3 g/dL (32.0-37.0); MCV 92.7 FL (80.0-97.0); Mean Platelet Volume 10.9 FL (9.5-12.2); NRBC Per 100 WBC 0 X 10*3/uL (0.00-0.01); Platelet Count 285 X 10*3/uL (140-440); RBC 5.18 X 10*6/uL (4.10-5.20); RDW 14.2 % (11.5-14.5); WBC 8.65 X 10*3/uL (4.50-10.00)
[2023-07-08 21:28] LABS: NT-Pro-B-Type Natriuretic Pept 38 pg/mL (0-125)
== END | disposition home or self-care (01) ==
LOC: LABWHC1 09:03
PROVIDERS: ATTEND Student in an Organized Health Care Education/Training Program
DX: I25.10 Atherosclerotic heart disease of native coronary artery without angina pectoris (principal); E78.5 Hyperlipidemia, unspecified; E11.22 Type 2 diabetes mellitus with diabetic chronic kidney disease; N18.9 Chronic kidney disease, unspecified
CPT/HCPCS: 36415; 80053; 80061; 83036; 83880; 84443; 85027

== ENCOUNTER → 2023-08-31 | Outpatient (CLI) | payer MEDICARE ==
--- NOTE | 2023-09-01 18:44 | MM ---
Reason for Exam: Screening (asymptomatic). Last mammogram was performed 4 year(s) and 6 month(s) ago. Patient History: Menarche at age 11. First Full-Term at age 24. Hysterectomy at age 36. Postmenopausal. Patient has history of breast feeding. Endometrial cancer. 1989, Benign Excisional Biopsy on the left side. Cyst Aspiration on the Left side. Risk Values: Margarita 5 year model risk: 1.8%. NCI Lifetime model risk: 8.0%. Prior Study Comparison: 11/16/1997 Bilateral Special View Mammogram, [facility]. 05/28/1999 Bilateral Diagnostic Mammogram, [facility]. 05/31/2000 Bilateral Diagnostic Mammogram, [facility]. 11/03/2017 Bilateral Screening Mammogram, [place]. 02/28/2019 Bilateral Screening Mammogram, [place]. Tissue Density: There are scattered areas of fibroglandular density. Findings: Analyzed By CAD. Chronic nodularity on the right. Unchanged areas of asymmetric density on the left. There is no suspicious group of microcalcifications or new suspicious mass in either breast. Overall Assessment: Benign, BI-RAD 2 Management: Screening Mammogram of both breasts in 1 year. . Patient should continue monthly self-breast exams. A clinical breast exam by your physician is recommended on an annual basis. This exam should not preclude additional follow-up of suspicious palpable abnormalities. Note on Margarita scores and lifetime risk: 1. A Margarita score greater than 3% is considered moderate risk. If this is the case, consider specialist referral to assess eligibility for a risk reducing agent. 2. If overall lifetime risk for the development of breast cancer is 20% or higher, the patient may qualify for future screening with alternating mammogram and breast MRI. Electronically signed and approved by: Fly Mancia DO
== END | disposition home or self-care (01) ==
LOC: RADMAMWWP 09:32
PROVIDERS: ATTEND Family Medicine
DX: Z12.31 Encounter for screening mammogram for malignant neoplasm of breast (principal); Z78.0 Asymptomatic menopausal state
CPT/HCPCS: 77063; 77067